=== PATIENT | male | born 1965 | race Caucasian/White ===

== ENCOUNTER 2016-10-13 09:56 | Emergency (ER) | payer SELFPAY ==
[~2016-10-13] VITALS: Ht 177.8 cm; Wt 81.6 kg
[~2016-10-13 09:56] MED LIST: ANTIVERT GENERI25 MG PO; LORTAB 5/500 501 TAB PO; METFORMIN 500M500 MG PO; METFORMIN500 MG PO; MOBIC7.5 MG PO; PHENERGAN 25MG.25 M1 PO; TYLENOL W/CODEI1 TA2 PO; VOLTAREN75 MG PO
--- OUTSIDE RECORDS SUMMARY | 2016-10-13 10:22 | External Medical Summary Rpt ---
Author Author [employer] Organization [employer] Address Unknown Phone Unavailable Purpose Continuity of Care Document - through 2016
--- OUTSIDE RECORDS SUMMARY | 2016-10-13 10:22 | External Medical Summary Rpt ---
Author Author RISHABH Cabrera, [employer] Organization [employer] Address Unknown Phone Unavailable
--- OUTSIDE RECORDS SUMMARY | 2016-10-13 10:22 | External Medical Summary Rpt ---
Demographics Preferred Language German Marital Status Unknown Jain Affiliation Unknown Race Unknown Ethnic Group Unknown Author Author RISHABH Address Unknown Phone Immunization No patient found.
--- OUTSIDE RECORDS SUMMARY | 2016-10-13 10:22 | External Medical Summary Rpt ---
Demographics Preferred Language Ukrainian Marital Status Unknown Catholic Affiliation Unknown Race Unknown Ethnic Group Unknown Author Author RISHABH Address Unknown Phone Immunization No patient found.
--- OUTSIDE RECORDS SUMMARY | 2016-10-13 10:22 | External Medical Summary Rpt ---
Author Author RISHABH Address Unknown Phone [email or web address] Purpose Continuity of Care Document - through 2016
--- OUTSIDE RECORDS SUMMARY | 2016-10-13 10:22 | External Medical Summary Rpt ---
Author Author RISHABH Address Unknown Phone [email or web address] Purpose Continuity of Care Document - through 2016
--- NOTE | 2016-10-13 10:29 | RADIOLOGY REPORT PS360 ---
CT HEAD W/O CONTRAST HISTORY: Dizziness and weakness DIZZY ORDERING PHYSICIAN: Christofer James MD PATIENT AGE: 51 years COMPARISON: None TECHNIQUE: Axial images obtained without contrast. Brain and bone windows reviewed. FINDINGS: No midline shift, mass effect, intracranial hemorrhage, hydrocephalus, or extra-axial fluid collection is evident. Scattered areas of hypoattenuation are present in the periventricular and subcortical region consistent with microangiopathic changes. Oval lucency is noted in the right subinsular region and may be related to a choroidal fissure cyst or an old lacunar infarction versus dilated perivascular space. The calvarium has an unremarkable appearance. No mastoid effusion. Mild ethmoid sinus mucosal thickening. IMPRESSION: 1. No acute intracranial finding. 2. Microangiopathic changes
[2016-10-13 10:41] LABS: HEMOGLOBIN 15.9 g/dL (14.1-18.0)
[2016-10-13 10:42] LABS: LYMPH # 1.5 K/mm3 (0.7-4.5); LYMPH % 15.6 % (10-50)
[2016-10-13 11:03] LABS: FREE THYROXIN INDEX 6.8 ug/dl (5.93-13.13)
[2016-10-13 11:17] LABS: BUN 18 mg/dL (7-18); GFR (ESTIMATED) 89 ML/MIN (>60)
--- NOTE | 2016-10-13 11:31 | RADIOLOGY REPORT PS360 ---
CHEST-AP VIEW ONLY HISTORY: dizzy ORDERING PHYSICIAN: Christofer James MD PATIENT AGE: 51 years COMPARISON: 10/04/2014 FINDINGS: The cardiomediastinal silhouette and pulmonary vascularity are within normal limits. The lungs are clear without infiltrates, suspicious nodules, or pleural effusions. No acute bony abnormalities. IMPRESSION: Negative chest, no acute finding
--- NOTE | 2016-10-13 12:07 | Emergency Room Report ---
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 N Clinical Suspician of Infection? N Mental Status: 1 - Regular (Normal Baseline) Sepsis Risk:Low Sepsis Risk Have you (or family members/close friends) recently traveled outside the [place]? N If Yes, where/when: Have you had exposure to infectious disease within the past month? N TB? Other? Specify: Source patient, RN notes reviewed, family, RN/MD Exam Limitations no limitations Comment This is a 51-year-old male patient presenting to the emergency room with vertigo, sudden onset around 7 AM, shortly after drinking his morning coffee. The patient vomited once before arrival to the emergency room. He feels like the room is spinning around him. Patient has been diagnosed with diabetes approximately 5 years ago, and he was prescribed metformin, by his physician, however the patient is currently on no diabetic medications, refusing to take his metformin. ALLERGIES Coded Allergies: Penicillins (10/13/16) Home Medications Reported Medications Metformin HCL (Metformin) 500 MG PO DAILY History Medical History General CAD? No Angina: Yes [place]: No Hypertension? No Hyperlipidemia? No CHF? No DVT? No PE? No COPD? No Asthma? No Anemia? No GERD? No Gastric ulcers? No GI Bleed? No Hernia? No Thyroid Problems? No Hypothyroidism? No CVA? No Seizures? Yes Diabetes? Yes Insulin Dependent: No Insulin Pump: No Home FSBS? No Renal Insuffiency? No End Stage Renal Disease? No UTI? No Stones? Yes BPH? No GB Disease: Yes Nephritic Syndrome? No Asplenia? No Hepatitis? No Sickle Cell Disease? No Arthritis? No Migraines? No Cataracts? No Glaucoma? No MRSA? No HIV? No TB? No Anxiety? No Depression? No Cancer? No More? No Immunization Hx DT/Tetanus UNKNOWN Flu 2YRSorMore Pneumonia NEVER Surgical Hx Previous Surgery?Y CHOLECYSTECTOMY Family History Family Hx Diabetes Yes CAD Yes Hypertension Yes Hyperlipidemia Yes Cancer Yes TB No Social History Smoking Hx Smoker: Current Every Day Smoker Tobacco: Yes Type Cigarettes Packs/day < 1 Pack Alcohol Alcohol: Yes Review of Systems All Other Systems Reviewed and Negative Psychiatric/Neurological other (dizziness) Physical Exam Vital Signs Vital Signs Date Time Temp Pulse Resp B/P Pulse O2 O2 Flow FiO2 Ox Delivery Rate 10/13 1310 98.0 86 18 147/89 97 10/13 1245 87 18 150/88 97 10/13 1146 97 18 151/62 97 10/13 1107 87 18 148/89 98 10/13 1040 89 18 168/88 98 10/13 1035 77 158/85 10/13 1030 88 169/98 10/13 1000 97.7 82 18 166/101 97 General Appearance normal appearance, WD/WN, mild distress Eye Exam - bilateral eye normal exam, bilateral eye PERRL, bilateral eye other (normal fundi) Ear, Nose, Throat hearing grossly normal, normal ENT inspection, normal pharynx, normal tympanic membranes, normal ear canals, normal nasal mucosa Neck normal inspection, non-tender, supple, full range of motion Respiratory Status Yes: trachea midline, chest symmetrical, non tender chest. No: respiratory distress. Lung Sounds bilateral: normal breath sounds, lungs clear. Cardiovascular normal exam, regular rate/rhythm, no peripheral edema, no gallop, no JVD, no murmur, no rub, normal peripheral pulses Gastrointestinal normal bowel sounds, normal exam, non tender, soft, no organomegaly Extremities non-tender, normal range of motion, normal inspection Neurologic alert, clerk analyst II-XII nml as tested, normal exam, oriented x 3 Glascow Coma Scale Glascow Coma Scale Response Value EYE response: 4 Spontaneously 4 MOTOR response: 6 OBEYS 6 VERBAL response: 5 Oriented & Converses 5 Total 15 Mental status normal mood/affect Skin intact, normal color, warm/dry Stroke Score/Tx Stroke Evaluation Initial symptoms indicative of possible stroke? Yes NIH STROKE SCORE NIH STROKE SCORE Response Value 1a.Level of Consciousness ALERT 0 1b.LOC Questions ANSWERS BOTH CORRECTLY 0 1c.LOC Commands OBEYS BOTH CORRECTLY 0 2 .Best Gaze PARTIAL GAZE PALSY 1 3 .Visual NO VISUAL LOSS 0 4 .Facial Palsy NORMAL 0 5a.Motor Arm Left NO DRIFT 0 5b.Motor Arm Right NO DRIFT 0 6a.Motor Leg Left NO DRIFT 0 6b.Motor Leg Right NO DRIFT 0 7 .Limb Ataxia ABSENT 0 8 .Sensory NORMAL 0 9 .Best Language NO APHASIA 0 10.Dysarthria NORMAL ARTICULATION 0 ED.NIH11 NO NEGLECT 0 Total 1 Treatment Consideration t-PA ordered? No Exit section? Yes Medical Decision Making LABS/Meds/Orders Pt receiving controlled substance in ED? No Comment 1130am - upon reevaluation patient appears medically stable, clinically improving, able to stand, and walk without assistance without any obvious distress. Patient also complains with nocturia, polyuria polydipsia, which are consistent with his uncontrolled diabetes. Either lengthy discussion with the patient advising him of risks associated with his noncompliance, also comorbidities resulting from refusal to treat his diabetes. Patient agreeable to resume his metformin, to keep a log with his blood sugars at home and follow up within 2 days with his PCP in order to manage his diabetes as outpatient. Of note is his hemoglobin A1c is 10.2 today. Results/Orders Laboratory Tests 10/13/16 1030: Hemoglobin A1c 10.8 H 10/13/16 1030: B-Natriuretic Peptide 12, Amylase 48, Lipase 483 H, TSH 1.77, Free T4 Index 6.8 , Thyroxine (T4) 8.0, T3 Uptake 34 10/13/16 1030: Sodium 136, Potassium 4.7, Chloride 102, Carbon Dioxide 28, BUN 18, Creatinine 0.9, Estimated Creat Clear 111, Estimated GFR (MDRD) 89, Glucose 366 H, Calcium 9.3, Total Bilirubin 0.3, AST 15, ALT 28, Alkaline Phosphatase 103, Creatine Kinase 63, CK and CKMB Interp < 0.5, Troponin I < 0.02, Total Protein 7.4, Albumin 3.7, Globulin 3.7 H, Albumin/Globulin Ratio 1.0 L, D-Dimer < 100, WBC 9.7, RBC 5.37, Hgb 15.9, Hct 48.5, MCV 90.4, RDW 14.5, Plt Count 183, Gran % 80.9 H, Gran # 7.8, Lymphocytes % 15.6, Monocytes % 3.5, Lymphocytes # 1.5, Monocytes # 0.3, PUBS MCHC 32.8, MCH 29.6, Alcohols 0 10/13/16 1004: Opiates Screen Cancelled, Urine Methadone Screen Cancelled, Barbiturates Cancelled, Phencyclidine Screen Cancelled, Amphetamines Screen Cancelled, Benzodiazepines Screen Cancelled, Cocaine Screen Cancelled, Marijuana (THC) Screen Cancelled, Urine Color Cancelled, Urine Appearance Cancelled, Urine pH Cancelled, Ur Specific [place] Cancelled Current Medication Orders Sig/Joey Start time Last Medication Dose Route Stop Time Status Admin Insulin Human Regular 4 UNITS ONCE ONE 10/13 1245 DC 10/13 SC 10/13 1246 1234 Insulin Human Regular 0 .STK-MED ONE 10/13 1233 DC .ROUTE Insulin Human Regular 4 UNITS ONCE ONE 10/13 1200 CAN IVP 10/13 1201 Meclizine HCl 0 .STK-MED ONE 10/13 1104 DC .ROUTE Ondansetron HCl 0 .STK-MED ONE 10/13 1104 DC .ROUTE Meclizine HCl 25 MG ONCE ONE 10/13 1045 DC 10/13 PO 10/13 1046 1106 Ondansetron HCl 4 MG ONCE ONE 10/13 1045 DC 10/13 IV 10/13 1046 1106 Aspirin 0 .STK-MED ONE 10/13 1034 DC .ROUTE Sodium Chloride 1,000 ML .STK-MED ONE 10/13 1034 DC IV Aspirin 325 MG ONCE ONE 10/13 1015 DC 10/13 PO 10/13 1016 1036 Sodium Chloride 10 ML PRN PRN 10/13 1015 DCD IV 10/14 1003 Sodium Chloride 1,000 ML .Q1H1M 10/13 1015 DC 10/13 IV 10/13 1115 1037 Sodium Chloride 10 ML PRN PRN 10/13 1015 DCD IV 10/14 1005 Orders Procedure Date/time Status DIET-NOTHING BY MOUTH 10/13 L Active GLYCOHEMOGLOBIN (A1C) 10/13 1148 Complete FSBS REQUEST BY CARE AREA 10/[address] HEAD REQ 10/13 1005 Complete ORTHOSTATIC B/P 10/13 1005 Active THYROID PANEL 2 (WITH TSH) 10/13 1004 Complete LIPASE 10/13 1004 Complete D-DIMER 10/13 1004 Complete BRAIN NATRIURETIC PEPTIDE 10/13 1004 Complete AMYLASE 10/13 1004 Complete ALCOHOL 10/13 1004 Complete ELECTROCARDIOGRAM REQUEST 10/13 1003 Active IV SALINE LOCK 10/13 1003 Active TROPONIN I 10/13 1003 Complete CPK 10/13 1003 Complete COMPLETE METABOLIC PANEL 10/13 1003 Complete CKMB 10/13 1003 Complete CBC WITH AUTO DIFF 10/13 1003 Complete 12 LEAD EKG-ROSANGELA (INITIAL) 10/13 UNK Active CM/EKG 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 of ischemic chgs, no ectopy, normal QRS, normal IL, normal EKG, no EKG for comparison, non-spec. ST/Twave chgs, ST elevation, ST depression, LBBB, RBBB, ectopy, abnormal Q waves XRAY/CT/US XRAY/CT/US CT head CT interpretation by discussed w/radiologist CT Results see radiologist's report Departure Departure Time of Disposition 1206 Disposition DC Home or Self Care(routine) Clinical Impression Primary Impression: Uncontrolled diabetes mellitus Qualifiers: Diabetes mellitus type: type 2 Diabetes mellitus complication status: with unspecified complications Diabetes mellitus manager intermediate insulin use: with manager intermediate use Qualified Code: E11.8 - Type 2 diabetes mellitus with unspecified complications Secondary Impressions: Vertigo Condition STABLE Referrals Shanda SINGH,Cristobal Wood Patient Instructions DI for Diabetes Type 1 -- Adult, DI for Dizziness- Nonvertigo, Fat-Restricted Diet Additional Instructions Please resume the Metformin, take 500mg one pill 2x/day for one week, and increase the dose to 2pills 2x/day after one week. Please eat a strict diabetic diet, see attached instructions. Please follow-up with your family physician (of choice) as soon as possible. Discharge Counseling Counseled pt/family regarding diagnosis, test results, medications/RX, home care, follow up needs Comment Please resume the Metformin, take 500mg one pill 2x/day for one week, and increase the dose to 2pills 2x/day after one week. Please eat a strict diabetic diet, see attached instructions. Please follow-up with your family physician (of choice) as soon as possible. Prescriptions Current Visit Scripts Metformin HCl (Metformin) 500 MG PO BID #60 TAB take 500mg 1 pill 2x/day for 1 week, and double the dose to 2pills 2x/day fater the 1st week. MECLIZINE HCL (ANTIVERT 25MG (generic)) 25 MG PO QIDP PRN dizziness #20 TAB ED [place] [address]
[2016-10-13] MEDS ORDERED: METFORMIN 500M500 MG PO (12:14)
[2016-10-13] MEDS ORDERED: METFORMIN 500M500 M1 PO (12:50)
[2016-10-13] MEDS ORDERED: MECLIZINE HYDRO25 M2 PO (12:51)
[2016-10-13 13:10] VITALS: BP 147/89
== END 2016-10-13 13:11 | disposition home or self-care (01) ==
LOC: ER 09:56
PROVIDERS: Emergency Medicine
DX: E11.8 Type 2 diabetes mellitus with unspecified complications (principal); R42 Dizziness and giddiness; Z72.0 Tobacco use
CPT/HCPCS: J2405